=== PATIENT | male | born 2000 | race Caucasian/White ===

== ENCOUNTER 2020-12-29 14:23 | Inpatient (IN) ==
[2020-12-29 14:55] LABS: Basophils % 0.3 %; Eosinophils % 0.1 %; Hematocrit 43.2 % (37.5-50.1); Hemoglobin 15.1 g/dL (12.9-16.9); Immature Granulocytes % 0.3 % (0-4); Lymphocytes % 20.7 %; Mean Corpuscular Hemoglobin 30.7 pg (28.0-33.3); Mean Corpuscular Volume 87.8 fL (83.0-100.0); Mean Platelet Volume 8.5 fL (9.4-12.4); Monocytes % 9.5 %; Platelet Count 283 K/mcL (140-400); Red Blood Count 4.92 M/mcL (4.19-5.50); Red Cell Distribution Width 12.1 % (11.5-14.5); Segmented Neutrophils % 69.1 %; White Blood Count 7.9 K/mcL (4.3-11.1)
[2020-12-29 14:56] LABS: Lymphocytes # 1.6 K/mcL (0.6-4.6); Monocytes # 0.8 K/mcL (0.0-1.3); Neutrophils # 5.5 K/mcL (1.6-8.9)
[2020-12-29 15:01] LABS: Amorphous Sediment,Urine Few per hpf (None-Few); Bilirubin,Urine Negative (Negative); Blood,Urine Negative (Negative); Clarity,Urine Clear (Clear); Color,Urine Yellow (Yellow); Glucose,Urine (UA) Normal (Normal); Ketones,Urine Negative (Negative); Leukocyte Esterase,Urine Negative (Negative); Mucus,Urine Moderate per lpf (None-Few); Nitrite,Urine Negative (Negative); Protein,Urine 100 mg/dL (Neg-Trace); RBC,Urine 0-3 per hpf (0-3); Specific Gravity,Urine 1.028 (1.010-1.025); Squamous Epithelial Cell,Urine Few per hpf (None-Few); WBC,Urine 0-3 per hpf (0-3)
[2020-12-29 15:07] LABS: Amphetamine Screen,Urine Negative ng/mL (Cutoff=1000); Barbiturate Screen,Urine Negative ng/mL (Cutoff=200); Benzodiazepines Screen,Urine Negative ng/mL (Cutoff=200); Cannabinoid Screen,Urine Positive ng/mL (Cutoff = 50); Cocaine Screen,Urine Negative ng/mL (Cutoff= 300); Opiate Screen,Urine Negative ng/mL (Cutoff=300); Phencyclidine Screen,Urine Negative ng/mL (Cutoff=25)
[2020-12-29 15:14] LABS: Acetaminophen < 10 mcg/mL (10-20); Alanine Aminotransferase 15 Units/L (7-52); Albumin 5.3 g/dL (3.5-5.7); Albumin/Globulin Ratio 2.2 (1.1-2.2); Alkaline Phosphatase 67 Units/L (34-104); Aspartate Amino Transferase 16 Units/L (13-39); BUN/Creatinine Ratio 17 (6-26); Bilirubin,Direct 0.3 mg/dL (0.0-0.2); Bilirubin,Total 1.3 mg/dL (0.3-1.0); Blood Urea Nitrogen 15 mg/dL (6-20); Calcium 9.5 mg/dL (8.6-10.3); Carbon Dioxide 26 mEq/L (23-29); Chloride 104 mEq/L (98-107); Ethanol < 10 mg/dL (Less than 10); Globulin 2.4 g/dL (2.4-3.5); Glucose 94 mg/dL (70-105); Osmolality,Calculated 289 (280-300); Potassium 3.6 mEq/L (3.5-5.1); Salicylate < 2.5 mg/dL (15.0-30.0); Sodium 139 mEq/L (136-145); Total Protein 7.7 g/dL (6.4-8.9); eGFR For African Americans > 60 (> 60); eGFR For Non-African Americans > 60 (> 60)
[2020-12-29 17:20] LABS: Thyroid Stimulating Hormone 0.947 mcIU/mL (0.340-5.600)
[2020-12-29] MEDS ORDERED: Mag Hydrox/Al Hydrox/Simeth 30 ML UDC PO PRN (19:12)
[2020-12-29] MEDS ORDERED: Haloperidol Lactate 5 MG/ML VIAL IM PRN (19:12)
[2020-12-29] MEDS ORDERED: MOM Conc 10 ML UD.LIQ PO PRN (19:12)
[2020-12-29] MEDS ORDERED: Acetaminophen 325 MG TABLET PO PRN (19:12)
[2020-12-29] MEDS ORDERED: haloperidoL 5 MG TABLET PO PRN (19:12)
[2020-12-29] MEDS ORDERED: *HR* LORazepam 1 MG TABLET PO PRN (19:12)
[2020-12-29] MEDS ORDERED: hydrOXYzine pamoate 25 MG CAPSULE PO PRN (19:12)
[2020-12-29] MEDS ORDERED: *HR* LORazepam 2 MG/ML VIAL IM PRN (19:12)
[2020-12-29] MEDS ORDERED: QUEtiapine Fumarate 25 MG TABLET PO PRN (19:12)
[2020-12-29] MEDS ORDERED: *HR* LORazepam 1 MG TABLET PO ONE (19:20)
[2020-12-30] MEDS: risperiDONE 1 MG TABLET PO SCH (13:14)
[2020-12-31] MEDS: risperiDONE 1 MG TABLET PO SCH ×2 (09:51→21:24)
[2021-01-01 08:59] VITALS: BP 114/76
[2021-01-01] MEDS: risperiDONE 1 MG TABLET PO SCH (11:01)
[2021-01-01] MEDS ORDERED: FLU Vac QV 20-21 (6Month+)/PF 0.5 ML SYRINGE IM ONE (11:24)
== END 2021-01-01 12:50 | disposition home or self-care (01) | DRG 881 ==
LOC: EMEROOARM 14:23 → 1ANU 19:53
PROVIDERS: ADMIT Psychiatry & Neurology Psychiatry; ATTEND Psychiatry & Neurology Psychiatry